=== PATIENT | female | born 1975 | race Caucasian/White ===

== ENCOUNTER 2017-01-08 16:58 | Emergency (ER) | payer MEDICARE, OTHER ==
[~2017-01-08] VITALS: Ht 170.2 cm; Wt 57.7 kg
[~2017-01-08 16:58] MED LIST: ADDERALL5 MG PO; ALPHAGAN 10 ML10 ML OP; AMBIEN 5MG TABLE5 MG PO; CYTOMEL 5MC5 MCG/TAB PO; DIFLUCAN150 MG PO; MACROBID 1100 MG/CAP PO; NO HOME MEDICATIONS; PHENERGAN 25 TA25 MG PO; PHENERGAN25 MG RC; SEPTRA DS 8001 TAB PO; SYNTHROID0.05 MG/TA PO; VALIUM 5MG T5 MG/TAB PO; VYVANSE20 MG
[2017-01-08 17:00] VITALS: BP 123/71; TEMP 99.3
[2017-01-08 17:48] LABS: PH 6 (5-8); URINE APPEARANCE Clear; URINE BACTERIA None Seen /hpf; URINE BILIRUBIN Negative (NEGATIVE); URINE BLOOD Negative (NEGATIVE); URINE COLOR Amber; URINE GLUCOSE Negative (NEGATIVE); URINE KETONE Trace (NEGATIVE); URINE RBC 0-2 /hpf; URINE UROBILINOGEN >=4.0 mg/dL (NEGATIVE)
[2017-01-08 17:49] LABS: URINE WBC 20-50 /hpf
[2017-01-08] MEDS ORDERED: CEFTIN 250250 MG/TAB PO (17:59)
[2017-01-08] MEDS ORDERED: PYRIDIUM 100MG100 MG PO (18:13)
[2017-01-08 18:15] VITALS: PULSE 94
== END 2017-01-08 18:16 | disposition home or self-care (01) ==
LOC: COL.ER 16:58
PROVIDERS: Nurse Practitioner
DX: N39.0 Urinary tract infection, site not specified (principal); E03.9 Hypothyroidism, unspecified; Z87.440 Personal history of urinary (tract) infections; Z98.890 Other specified postprocedural states

== ENCOUNTER 2017-03-31 18:39 | Emergency (ER) | payer OTHER, MEDICARE ==
[~2017-03-31] VITALS: Ht 170.2 cm; Wt 57.3 kg
[~2017-03-31 18:39] MED LIST changes: +CEFTIN 250250 MG/TAB PO; +PYRIDIUM 100MG100 MG PO
[2017-03-31 18:42] VITALS: BP 123/61; PULSE 74; TEMP 97.9
[2017-03-31] MEDS ORDERED: NTHROIDNT65 PO (18:47)
[2017-03-31] MEDS ORDERED: PROMETRIUM200 M1 PO (20:12)
[2017-03-31] MEDS ORDERED: FLEXERIL5 MG PO (20:45)
== END 2017-03-31 20:59 | disposition home or self-care (01) ==
LOC: COL.ER 18:39
DX: S16.1XXA Strain of muscle, fascia and tendon at neck level, initial encounter (principal); E03.9 Hypothyroidism, unspecified; V43.52XA Car driver injured in collision with other type car in traffic accident, initial encounter

== ENCOUNTER 2018-12-05 17:11 | Emergency (ER) | payer MEDICARE, OTHER ==
[~2018-12-05] VITALS: Ht 170.2 cm; Wt 60.9 kg
[~2018-12-05 17:11] MED LIST changes: +FLEXERIL5 MG PO; +NTHROIDNT65 PO; +PROMETRIUM200 M1 PO
[2018-12-05 17:17] VITALS: BP 128/90; TEMP 98.7
[2018-12-05 19:02] LABS: TSH w REFLEX 0.683 uIU/mL (0.465-4.680)
[2018-12-05 19:29] VITALS: PULSE 75
== END 2018-12-05 19:30 | disposition home or self-care (01) ==
LOC: COL.ER 17:11
PROVIDERS: Physician Assistant
DX: E06.3 Autoimmune thyroiditis (principal); F41.9 Anxiety disorder, unspecified; Z01.812 Encounter for preprocedural laboratory examination

== ENCOUNTER 2019-01-19 15:13 | Emergency (ER) | payer MEDICARE, OTHER ==
[~2019-01-19] VITALS: Ht 170.2 cm; Wt 60.0 kg
[2019-01-19 16:08] LABS: BASO # 0.1 (0.0-0.2); BASO % 0.8 % (0.0-2.0); EOS # 0.1 (0.0-0.7); GRAN # 3.7 (1.4-6.5); GRAN % 61.1 % (42.2-75.2); HEMATOCRIT 38.6 % (37.0-47.0); HEMOGLOBIN 13.4 g/dl (12.5-16.0); LYMPH # 1.8 (1.2-3.4); LYMPH % 30.2 % (20.0-51.0); MEAN CELL VOLUME 90 fl (80.0-100.0); MEAN CORPUSCULAR HEMOGLOBIN 31 pg (27.0-31.0); MEAN CORPUSCULAR HGB CONC 35 g/dl (33.0-37.0); MEAN PLATELET VOLUME 9.4 fl (7.4-10.4); MONO # 0.4 (0.1-0.6); MONO % 6.6 % (1.7-9.3); PLATELET COUNT 294 K/mm3 (130-400); RED BLOOD COUNT 4.27 M/mm3 (4.10-5.30); REDCELL DISTRIBUTION WIDTH-CV 11.6 % (11.5-14.5)
[2019-01-19 16:20] LABS: ALANINE AMINOTRANSFERASE 6 U/L (9-52); ALBUMIN 4.9 gm/dL (3.5-5.0); ALKALINE PHOSPHATASE 38 U/L (50-136); ANION GAP 11 mmol/L (7-16); AST,SGOT 24 U/L (15-37); BLOOD UREA NITROGEN 13 mg/dL (7-17); CALCIUM 9.6 mg/dL (8.4-10.2); CARBON DIOXIDE 25 mmol/L (22-30); CHLORIDE 103 mmol/L (98-107); CREATININE, serum 0.77 (0.52-1.25); GLUCOSE 87 mg/dL (74-106); LIPASE 87 U/L (23-300); SODIUM 139 mmol/L (137-145); TOTAL PROTEIN 8.4 gm/dL (6.4-8.2)
[2019-01-19 16:26] LABS: C-REACTIVE PROTEIN < 0.5 mg/dL (0.0-0.9)
[2019-01-19] MEDS ORDERED: PRILOSEC 20MG20 MG PO (17:09)
[2019-01-19 17:17] LABS: COLLECTION METHOD CLEAN CATCH
[2019-01-19 17:58] LABS: PH 6 (5-8); SQUAMOUS EPITHELIAL None Seen /hpf; URINE APPEARANCE Clear; URINE BACTERIA Rare /hpf; URINE BILIRUBIN Negative (NEGATIVE); URINE BLOOD Negative (NEGATIVE); URINE COLOR Straw; URINE GLUCOSE Negative (NEGATIVE); URINE KETONE Negative (NEGATIVE); URINE LEUKOCYTE ESTERASE Negative (NEGATIVE); URINE NITRATE Negative (NEGATIVE); URINE PROTEIN(semi-quant) Negative (NEGATIVE); URINE RBC 0-2 /hpf; URINE UROBILINOGEN Negative (NEGATIVE)
[2019-01-19 18:03] VITALS: BP 108/70; PULSE 78; TEMP 98.6
== END 2019-01-19 18:05 | disposition home or self-care (01) ==
LOC: COL.ER 15:13
PROVIDERS: Family Medicine
DX: K29.00 Acute gastritis without bleeding (principal)
CPT/HCPCS: C9113; J2405; J7030

== ENCOUNTER 2021-02-22 11:18 | Emergency (ER) | payer MEDICARE, OTHER ==
[~2021-02-22] VITALS: Ht 170.2 cm; Wt 58.6 kg
[~2021-02-22 11:18] MED LIST changes: +PRILOSEC 20MG20 MG PO
[2021-02-22 11:34] VITALS: TEMP 97.7
[2021-02-22 11:51] LABS: COLLECTION METHOD CLEAN CATCH
[2021-02-22] MEDS ORDERED: PYRIDIUM200 M1 PO (11:56)
[2021-02-22] MEDS ORDERED: BACTRIM DS 8001 TAB PO (11:56)
[2021-02-22] MEDS ORDERED: DIFLUCAN150 MG PO (11:56)
[2021-02-22 12:01] LABS: MUCOUS Present /lpf; PH 5 (5-8); URINE APPEARANCE Clear; URINE BACTERIA None Seen /hpf; URINE BILIRUBIN Negative (NEGATIVE); URINE BLOOD Negative (NEGATIVE); URINE COLOR Amber; URINE GLUCOSE Negative (NEGATIVE); URINE KETONE Negative (NEGATIVE); URINE LEUKOCYTE ESTERASE Negative (NEGATIVE); URINE PROTEIN(semi-quant) Negative (NEGATIVE); URINE UROBILINOGEN >=4.0 mg/dL (NEGATIVE)
[2021-02-22 12:02] LABS: URINE NITRATE Positive (NEGATIVE)
[2021-02-22 12:11] VITALS: BP 120/86; PULSE 94
== END 2021-02-22 12:11 | disposition home or self-care (01) ==
LOC: COL.ER 11:18
PROVIDERS: Personal Emergency Response Attendant
DX: N39.0 Urinary tract infection, site not specified (principal); Z88.1 Allergy status to other antibiotic agents

== ENCOUNTER → 2021-04-08 | Outpatient (CLI) | payer MEDICARE, OTHER ==
[~2021-04-08] MED LIST changes: +BACTRIM DS 8001 TAB PO; +PYRIDIUM200 M1 PO
== END ==
LOC: COL.LAB 14:58
DX: Z01.89 Encounter for other specified special examinations (principal)